=== PATIENT | female | born 1980 | race Caucasian/White ===

== ENCOUNTER → 2018-05-30 | Outpatient (CLI) | payer OTHER | LOC: FIMAGING 09:28 | PROVIDERS: ATTEND Advanced Practice Midwife | DX: O09.512 Supervision of elderly primigravida, second trimester (principal); Z3A.20 20 weeks gestation of pregnancy ==

== ENCOUNTER 2018-10-21 12:15 | Inpatient (IN) | payer OTHER ==
[2018-10-21] MEDS ORDERED: TERBUTALINE SULFATE 1 MG/ML VIAL IV PRN (12:23)
[2018-10-21] MEDS ORDERED: OXYTOCIN/RINGERS LACTATE 1,000 ML IV PRN (12:23)
[2018-10-21] MEDS ORDERED: LIDOCAINE 1% 300 MG/30 ML SDV SC PRN (12:23)
[2018-10-21] MEDS ORDERED: EPSOM SALT 454 GM TP PRN (12:23)
[2018-10-21] MEDS ORDERED: LR 1,000 ML IV PRN (12:23)
[2018-10-21] MEDS ORDERED: MISOPROSTOL 200 MCG TAB PR PRN (12:23)
[2018-10-21] MEDS ORDERED: OLIVE OIL 118 ML BTL MISC PRN (12:23)
[2018-10-21] MEDS ORDERED: IBUPROFEN 600 MG TAB PO PRN (12:23)
[2018-10-21] MEDS ORDERED: LIDOCAINE 1% 300 MG/30 ML SDV ONE (12:35)
[2018-10-21] MEDS ORDERED: AMMONIA AROMATIC 1 EACH AMP IH ONE (12:36)
[2018-10-21] MEDS ORDERED: OXYTOCIN 10 UNIT/ML VIAL ONE (12:36)
[2018-10-21] MEDS ORDERED: MISOPROSTOL 200 MCG TAB ONE (12:36)
[2018-10-21] MEDS ORDERED: TERBUTALINE SULFATE 1 MG/ML VIAL ONE (12:36)
[2018-10-21] MEDS ORDERED: OLIVE OIL 118 ML BTL ONE (12:36)
[2018-10-21 12:37] LABS: PLATELET COUNT 229 10^3/uL (150-400)
[2018-10-21] MEDS ORDERED: fentaNYL 100 MCG/2 ML INJ ONE (13:04)
[2018-10-21] MEDS ORDERED: PHENYLEPHRINE HCL 100 MCG/ML SYR ONE (13:05)
--- NOTE | 2018-10-21 13:18 | PDGENHP ---
History and Physical History and Physical: Care: [facility] HPI: Patient is a [id number] with IUP@ 40-4 weeks that presents to L&D from [facility] due to slow cervical change and request for pain management. She has been jenise for approx 30 hours prior to arrival. She was noted to be 8/90/0 at last exam at the center this morning. She is feeling pressure but has been since she was noted to be 6cm. She reports SROM at approx 2200 last night. She denies any vaginal bleeding. EDC: 10/17/18 which is based on LMP: 01/10/18 which is known and consistent with Ultrasound at 10 weeks. Her is complicated by: AMA Review of Systems: Constitutional: Denies any fever, chills, or fatigue HEENT: denies any visual changes, difficulty swallowing, hearing loss Cardiovascular: Denies any chest pain, palpitations, leg swelling Respiratory: denies any cough, wheezing, or shortness of breathe GI: Denies any nausea, vomiting, diarrhea, constipation : denies any dysuria, urgency, frequency, vaginal bleeding Musculoskeletal: denies any muscle or bone pain Skin: denies any rashes Neuro: denies any headache, seizures, lightheadedness, dizziness, or loss of consciousness Psychiatric: denies any depression, anxiety, or SI/HI thoughts HISTORY: Previous OB history: G1 Past medical history: not significant Past surgical history: shoulder surgery x2 Social: Denies any alcohol, tobacco, or drug use. Family history: Not relevant Medications: PNV Allergies (list reaction): latex LABS: Rh: O+ ABS: Neg Rubella: Immune HbsAg: NR HIV: NR VDRL: NR 1hr: 91 GC: Neg Chlamydia: Neg Pap: Normal GBS: negative PHYSICAL EXAM: Constitutional: WN, A&Ox3 HEENT: normocephalic atraumatic, supple Skin: Warm, dry, intact Heart: RRR, no murmur Chest: CTA-B Abdomen: Soft, nontender, gravid SVE: deferred on admission Extremities: trace edema, negative homans sign Neuro: grossly normal Psych: normal affect assessment: FHT baseline 125 +accels, + early decels, moderate variability Contractions: toco q 5-8 Assessment: 1) [id number] with IUP@ 40-4wks 2) protracted labor 3) GBS negative 4) Cat 1 FHR tracing Plan: 1) Admit to L&D 2) pain management PRN 3) reassess after KP 4) pitocin if contractions irregular Today's visit was approximately 45 min, of which >50% of visit 30 min, was spent face to face with pt on direct counseling/coordination of care.
[2018-10-21] MEDS ORDERED: fentaNYL 2MCG/ML/BUP 0.1% RTU 100 ML EP SCH ×2 (13:30→14:00)
--- NOTE | 2018-10-21 13:41 | PREANESOB ---
Obstetric Pre-Anesthesia Info - General Info : 1 Para: 0 RADHA: 10/17/18 Gestational Age: 40 week(s) and 4 day(s) - Info Status: Full Term Monitors: External FHR Pattern: Reassuring - Labor Status Indications for Labor Analgesia: Pain Control Labor Epidural: Yes Anesthesia Allergies/Adverse Reactions: Allergy/AdvReac Type Severity Reaction Status Date / Time Latex, Natural Rubber Allergy Verified 10/21/18 12:23 Visit Medications: Generic Name Dose Route Start Last Admin Trade Name Freq PRN Reason Stop Dose Admin Lactated Ringer's 1,000 mls @ 0 mls/hr 10/21/18 12:23 Lr IV 10/22/18 12:22 PRN PRN SEE PROTOCOL CONDITIONS Protocol Per Protocol Oxytocin/Lactated Ringer's 1,000 mls @ 125 mls/hr 10/21/18 12:23 Pitocin 20 Units/Lr (Premix) IV PRN PRN Post bleeding Fentanyl/Bupivacaine HCl 100 mls @ 0 mls/hr 10/21/18 13:30 Fentanyl/Bupivacaine/Ns 2 Mcg/Ml 0.1% (Premix EP 10/31/18 13:29 CONT SOTERO Protocol As Directed Ibuprofen 600 mg 10/21/18 12:23 Motrin PO ONCE PRN post , pain Lidocaine HCl 300 mg 10/21/18 12:23 Lidocaine Hcl 1% SC 04/19/19 12:22 ONCE PRN episiotomy Magnesium Sulfate 454 gm 10/21/18 12:23 Epsom Salt TP 04/19/19 12:22 Q1H PRN perineal discomfort Misoprostol 800 - 1,000 mcg 10/21/18 12:23 Cytotec NM ONCE PRN Vaginal Atony/Bleeding Crocheron Oil 118 ml 10/21/18 12:23 Sweet Oil MISC 04/19/19 12:22 ONCE PRN perineal massage Terbutaline Sulfate 0.25 mg 10/21/18 12:23 Brethine IV 04/19/19 12:22 ONCE PRN Tachysystole Discontinued Medications Generic Name Dose Route Start Last Admin Trade Name Freq PRN Reason Stop Dose Admin Ammonia (Aromatic Spirit) Confirm 10/21/18 12:36 Ammonia Aromatic Administered 10/21/18 12:37 Dose 1 each IH .STK-MED ONE Ephedrine Sulfate Confirm 10/21/18 13:05 Ephedrine Sulfate Administered 10/21/18 13:06 Dose 50 mg .ROUTE .STK-MED ONE Fentanyl Confirm 10/21/18 13:04 Sublimaze Administered 10/21/18 13:05 Dose 100 mcg .ROUTE .STK-MED ONE Lidocaine HCl Confirm 10/21/18 12:35 Lidocaine Hcl 1% Administered 10/21/18 12:36 Dose 300 mg .ROUTE .STK-MED ONE Misoprostol Confirm 10/21/18 12:36 Cytotec Administered 10/21/18 12:37 Dose 1,000 mcg .ROUTE .STK-MED ONE Crocheron Oil Confirm 10/21/18 12:36 Sweet Oil Administered 10/21/18 12:37 Dose 118 ml .ROUTE .STK-MED ONE Oxytocin Confirm 10/21/18 12:36 Pitocin Administered 10/21/18 12:37 Dose 40 unit .ROUTE .STK-MED ONE Phenylephrine HCl Confirm 10/21/18 13:05 Neosynephrine Administered 10/21/18 13:06 Dose 1,000 mcg .ROUTE .STK-MED ONE Terbutaline Sulfate Confirm 10/21/18 12:36 Brethine Administered 10/21/18 12:37 Dose 1 mg .ROUTE .STK-MED ONE - Anesthesia History Response to Local Anesthetics: Normal Anesthesia & Operative History: No Prior Problems Family Anesthesia History: Negative - Social History Substance Use/Abuse: Denies - Vital Signs Height/Weight (Nursing): Height 170.18 cm Weight 85.275 kg - Focused Exam Mallampati Score: Class 2 Labs: 10/21/18 12:15 Patient ABO/Rh O POSITIVE 10/21/18 12:15 - Plan Consent Signed and on Chart: Yes Patient/Guardian Understands and Agrees to Plan: Yes
[2018-10-21] MEDS ORDERED: NALOXONE HCL 0.4 MG/ML INJ IVP PRN (13:43)
[2018-10-21] MEDS ORDERED: METOCLOPRAMIDE 10 MG/2 ML VIAL IVP PRN (13:43)
[2018-10-21] MEDS ORDERED: ONDANSETRON 4 MG/2 ML VIAL IVP PRN (13:43)
[2018-10-21] MEDS ORDERED: PHENYLEPHRINE HCL 100 MCG/ML SYR IVP PRN (13:43)
[2018-10-21] MEDS ORDERED: LR 500 ML IV SCH (14:00)
[2018-10-21] MEDS ORDERED: fentaNYL 200 MCG, BUPIVACAINE 0.5% 20 ML in NS 100 ML EP SCH (14:00)
[2018-10-21] MEDS ORDERED: LR 500 ML IV PRN (14:24)
--- NOTE | 2018-10-21 14:24 | OBPROG ---
Labor Progress Note Assessment/Plan: Assessment: [id number] with IUP@40-4wks protracted labor GBS Negative cat [address] Plan: start pitocin reassess 2-3 hr PRN anticipate 10/21/18 14:22 Subjective/Intrapartum Course: 10/21/18 14:22 Pt now comfortable with KP. Denies any pain. Plans to rest at this time. Vineet , FOB, present and supportive. Objective: 10/21/18 12:15 Patient ABO/Rh O POSITIVE 10/21/18 12:15 - SVE Dilation (cm): 8 Effacement (%): 90 Station: 0 Membranes: SROM Amniotic Fluid Color: Clear - Contraction Pattern Assessment Current Contraction Pattern: Irregular - FHR Assessment Neal FHR (bpm): 125 FHR Pattern Variability: Moderate FHR Category: 1 Oxytocin Orders Assessment - Pre-Induction/Augmentation Assessment Gestational Age: 40 week(s) and 4 day(s) ICD10 Worksheet Patient Problems: Problems Problem Status Onset Dysfunctional labor Acute - ICD10 Problem Qualifiers (1) Dysfunctional labor
[2018-10-21] MEDS ORDERED: OXYTOCIN/RINGERS LACTATE 500 ML IV SCH (14:30)
--- NOTE | 2018-10-21 17:41 | OBPROG ---
Labor Progress Note Assessment/Plan: Assessment: [id number] with IUP@40-4wks protracted labor GBS Negative cat 1 [address] IUPC placed Asynclitic presentation Plan: cont pitocin reassess 2-[address] Abarca aware of lack of progress and babys position if no cervical change x2 hours of adequate ctxs (MVU>180) then will discuss c/s 10/21/18 17:38 Subjective/Intrapartum Course: 10/21/18 14:22 Pt now comfortable with KP. Denies any pain. Plans to rest at this time. Vineet , FOB, present and supportive. 10/21/18 17:39 Pt was able to rest for couple hours. She desires to cont clear liquids. FOB @ BS and supportive Objective: 10/21/18 12:15 Patient ABO/Rh O POSITIVE 10/21/18 12:15 - SVE Dilation (cm): 8 Effacement (%): 90 Station: 0 Membranes: SROM Amniotic Fluid Color: Clear - Contraction Pattern Assessment Current Contraction Pattern: Irregular - FHR Assessment Neal FHR (bpm): 125 FHR Pattern Variability: Moderate FHR Category: 1 - Procedures Non-surgical Procedures: IUPC Oxytocin Orders Assessment - Pre-Induction/Augmentation Assessment Gestational Age: 40 week(s) and 4 day(s) ICD10 Worksheet Patient Problems: Problems Problem Status Onset Dysfunctional labor Acute - ICD10 Problem Qualifiers (1) Dysfunctional labor
[2018-10-21] MEDS ORDERED: CALCIUM CARBONATE 500 MG CHEWABLE TAB PO PRN (19:01)
[2018-10-21] MEDS ORDERED: FAMOTIDINE 20 MG in NS 100 ML IV ONE (19:04)
[2018-10-21] MEDS ORDERED: FAMOTIDINE 20 MG/NACL 50 ML IV ONE (19:15)
[2018-10-21] MEDS ORDERED: METHYLERGONOVINE MAL 0.2 MG/ML INJ ONE (20:18)
[2018-10-21] MEDS ORDERED: ceFAZolin 2 GM/DEXTROSE 100 ML IV ONE (20:30)
[2018-10-21] MEDS ORDERED: METHYLERGONOVINE MAL 0.2 MG/ML INJ IM ONE (20:39)
[2018-10-21] MEDS ORDERED: HYDROCORTISONE 0.5% CREAM TP PRN (20:40)
[2018-10-21] MEDS ORDERED: SIMETHICONE 80 MG TAB CHEW PO PRN (20:40)
--- NOTE | 2018-10-21 20:51 | OBDEL ---
Info Type: Vaginal Presentation at Delivery: Vertex L&D Analgesia/Anesthesia Type: Epidural GBS+: No Intrapartum Medications: Generic Name Dose Route Start Last Admin Trade Name Freq PRN Reason Stop Dose Admin Calcium Carbonate 500 mg 10/21/18 19:01 10/21/18 19:15 Tums PO 04/19/19 19:00 500 mg TID PRN Administration Indigestion Oxytocin/Lactated Ringer's 500 mls @ 0 mls/hr 10/21/18 14:30 10/21/18 14:55 Pitocin 30 Units/Lr (Premix) IV 04/19/19 14:29 500 mls CONT SOTERO Administration Protocol Per Protocol Discontinued Medications Generic Name Dose Route Start Last Admin Trade Name Freq PRN Reason Stop Dose Admin Famotidine/Sodium Chloride 50 mls @ 200 mls/hr 10/21/18 19:15 10/21/18 19:15 Pepcid 20 Mg (Premix) IV 10/21/18 19:29 50 mls ONCE ONE Administration - Hospital Course Intrapartum: 10/21/18 14:22 Pt now comfortable with KP. Denies any pain. Plans to rest at this time. Vineet , FOB, present and supportive. 10/21/18 17:39 Pt was able to rest for couple hours. She desires to cont clear liquids. FOB @ BS and supportive Indications for Delivery: Spontaneous Labor, SROM Vaginal Delivery - Delivery Provider Delivery Physician/CNM: Alexia Beckett - Labor and Delivery Onset of Contractions Date: 10/20/18 Onset of Contractions Time: 10:00 Onset of Contractions Type: Augmented Rupture of Membranes Date: 11/19/18 Rupture of Membranes Time: 22:00 Rupture of Membranes Type: Spontaneous Amniotic Fluid Color: Clear Dilation Complete Date: 10/21/18 Dilation Complete Time: 19:30 Placenta Delivery Date: 10/21/18 Placenta Delivery Time: 20:07 Total Hours of Labor: 34 Non-surgical Procedures: IUPC Vaginal Sponge Count Correct: Yes Vaginal Needle Count Correct: Yes Vaginal Sweep Performed: Yes EBL: 450 Delivery Events: Nuchal Cord Delivery Comment: delivered after approx 30 min of pushing. spont cry baby to mothers chest. placenta was delivered in pieces, manual sweep to remove some membranes. Moderate amt of bleeding, clots removed. IV dislodged during pushing. IM pitocin and IM methergine was given. new IV was started, IV ancef 2grams ordered x1 dose. Abd BSUS done- reveals thin stripe, no tissue noted. bleeding stable. uterus firm. - Medications Labor Augmentation/Induction Methods Used: Pitocin Labor Augmentation/Induction Indication: Inadequate Contraction Frequency, Inadequate Contraction Strength Data RADHA: 10/17/18 Gestational Age: 40 week(s) and 4 day(s) Neal Delivery Date: 10/21/18 Delivery Time: 19:59 Sex of : Female Score (1 Min): 8 Score (5 Min): 9 ICD10 Worksheet Patient Problems: Problems Problem Status Onset Dysfunctional labor Acute (spontaneous vaginal delivery) Acute - ICD10 Problem Qualifiers (1) Dysfunctional labor (2) (spontaneous vaginal delivery)
[2018-10-22] MEDS: ACETAMINOPHEN 325 MG TAB PO SCH ×5 (03:28→22:54)
[2018-10-22] MEDS: IBUPROFEN 600 MG TAB PO SCH ×4 (03:28→22:53)
[2018-10-22] MEDS: DOCUSATE SODIUM 100 MG CAP PO PRN ×2 (08:48→15:49)
--- NOTE | 2018-10-22 10:38 | OBPP ---
Progress Note Assessment/Plan: Assessment: PP day 1- Breast feeding difficulty Plan: D/C home tomorrow support 10/22/18 10:37 Objective: 10/22/18 06:00 Patient ABO/Rh O POSITIVE 10/21/18 12:15 Temp Pulse Resp BP Pulse Ox 35.8 C L 51 L 16 101/60 94 10/22/18 08:00 10/22/18 08:00 10/22/18 08:00 10/22/18 08:00 10/22/18 08:00 VSS, afebrile Uterine Position/Fundal Height: At Umbilicus Uterine Tone: Firm
--- NOTE | 2018-10-22 14:18 | POSTANESTH ---
Post Anesthetic Evaluation Cardiovascular Status: Normal, Stable Respiratory Status: Normal, Stable Level of Consciousness/Mental Status: Can Participate in Eval Pain Control: Adequate, Prn Tx Ordered Nausea/Vomiting Control: Adequate, Prn Tx Ordered Complications Possibly Related to Anesthesia: None Noted
[2018-10-23] MEDS: ACETAMINOPHEN 325 MG TAB PO SCH ×2 (04:32→10:25)
[2018-10-23] MEDS: IBUPROFEN 600 MG TAB PO SCH ×2 (04:32→10:25)
[2018-10-23 09:19] VITALS: BP 111/67
[2018-10-23] MEDS: DOCUSATE SODIUM 100 MG CAP PO PRN (09:32)
--- NOTE | 2018-10-23 11:01 | OBPP ---
Progress Note Assessment/Plan: Assessment: PPD #2 Maternal Exhaustion Plan: 10/23/18 11:00 Discharge home today. Advised she can follow up with our office or at the center as desired. Recommended follow up week 2//6. Subjective/ Course: 10/23/18 10:58 Doing well other than exhausted. Happy with experience here and the care they have received. is going well. Left nipple a little sore from a poor latch in the beginning but getting better. Bleeding minimal. Feels discomfort abdominally when walking, doesn't have any core strength. Ready to discharge home today. Has help at home. 10/23/18 11:01 Objective: 10/22/18 06:00 Patient ABO/Rh O POSITIVE 10/21/18 12:15 Temp Pulse Resp BP Pulse Ox 36.8 C 51 L 14 111/67 95 10/23/18 08:50 10/23/18 08:50 10/23/18 08:50 10/23/18 08:50 10/23/18 08:50 Breasts soft, nipples intact bilaterally Uterine Position/Fundal Height: Umbilicus -1 Uterine Tone: Firm
--- NOTE | 2018-10-23 11:02 | OBGCSDC ---
General Delivery Information - General Info : 1 Para: 1 Abortions: 0 Type: Vaginal L&D Analgesia/Anesthesia Type: Epidural Admission Date: 10/21/18 Labs: Patient ABO/Rh O POSITIVE 10/21/18 12:15 Hct 33.5 % (38.0-47.0) L 10/22/18 06:00 - Hospital Course Intrapartum: 10/21/18 14:22 Pt now comfortable with KP. Denies any pain. Plans to rest at this time. Vineet , FOB, present and supportive. 10/21/18 17:39 Pt was able to rest for couple hours. She desires to cont clear liquids. FOB @ BS and supportive : 10/23/18 10:58 Doing well other than exhausted. Happy with experience here and the care they have received. is going well. Left nipple a little sore from a poor latch in the beginning but getting better. Bleeding minimal. Feels discomfort abdominally when walking, doesn't have any core strength. Ready to discharge home today. Has help at home. 10/23/18 11:01 Vaginal - Delivery Provider Delivery Physician/CNM: Alexia Beckett - Diagnosis Labor: Augmented Rupture of Membranes Type: Spontaneous Amniotic Fluid Color: Clear Delivery Events: Nuchal Cord - Procedures Non-surgical Procedures: IUPC - Delivery Non-surgical Procedures: IUPC EBL: 450 Data RADHA: 10/17/18 Gestational Age: 40 week(s) and 6 day(s) Neal Delivery Date: 10/21/18 Delivery Time: 19:59 Sex of : Female [place] Weight (gm): 3600.389 g Score (1 Min): 8 Score (5 Min): 9 Discharge Information - Discharge Information Condition: Good Instruction/Follow Up: Two Weeks, Four Weeks, Six Weeks (May follow up with [facility] and/or [facility] as desired.)
== END 2018-10-23 12:44 | disposition home or self-care (01) | DRG 807 ==
LOC: OBSVTOIN 12:15 → FLD 12:15 → FOB 23:17
PROVIDERS: ADMIT Advanced Practice Midwife; ATTEND Hospitalist
DX: O62.0 Primary inadequate contractions (principal); O69.9XX0 Labor and delivery complicated by cord complication, unspecified, not applicable or unspecified; Z3A.40 40 weeks gestation of pregnancy; Z37.0 Single live birth
CPT/HCPCS: J0690; J2210; J2370; J2405; J2590; J3010; J3105